=== PATIENT | female | born 1945 | race Caucasian/White ===

== ENCOUNTER 2020-11-27 14:18 | Outpatient (CLI) | payer MEDICARE, OTHER, SELFPAY ==
[2020-11-27 15:32] LABS: Basophils % 0.6 %; Eosinophils # 0.2 10^3/uL (0.0-0.8); Eosinophils % 2.9 %; Hematocrit 37.1 % (37.0-47.0); Hemoglobin 12.1 g/dL (11.5-15.3); Lymphocytes # 1.9 10^3/uL (0.8-4.8); Lymphocytes % 30.1 %; Mean Corpuscular HGB Conc 32.6 g/dL (30.0-36.0); Mean Corpuscular Hemoglobin 27.4 pg (28.0-34.0); Mean Corpuscular Volume 83.9 fL (81-99); Mean Platelet Volume 10.2 fL (7.4-10.4); Monocytes # 0.4 10^3/uL (0.2-0.9); Monocytes % 6.4 %; Neutrophils # 3.71 10^3/uL (1.8-7.7); Neutrophils % 59.7 %; Nucleated Red Blood Cells % 0 %; Platelet Count 171 10^3/cmm (130-400); Red Blood Count 4.42 10^6/uL (4.1-5.3); Red Cell Distribution Width 12.5 % (12.1-15.1); White Blood Count 6.2 10^3/uL (4.0-10.0)
[2020-11-27 15:49] LABS: Estmated Average Glucose 214; Hemoglobin A1C 9.1 % (4.0-6.0)
[2020-11-27 15:50] LABS: Alanine Aminotransferase 13 U/L (0-33); Alkaline Phosphatase 88 IU/L (35-105); Anion Gap 12.2 (5-19); Aspartate Amino Transferase 14 U/L (0-32); Blood Urea Nitrogen 24 mg/dL (8-23); Calcium 9.1 mg/dL (8.5-10.5); Carbon Dioxide 27 mmol/L (22-29); Chloride 102 mmol/L (98-107); Chol HDL Ratio 5.34 mg/dL (0.0-4.40); Cholesterol 171 mg/dL (0-200); Globulin 3.2 g/dL (1.3-4.6); Glucose 172 mg/dL (65-115); HDL Cholesterol 32 mg/dL (60-100); Magnesium 1.8 mg/dL (1.7-2.3); Osmolality Calculated 292 mOsm/kg (285-295); Potassium 4.2 mmol/L (3.5-5.1); Sodium 137 mmol/L (136-145); Total Bilirubin 0.3 mg/dL (0.15-1.2); Total Protein 7.2 g/dL (6.6-8.7); Triglycerides 510 mg/dL (0-150)
[2020-11-27 15:53] LABS: Bilirubin Urine Neg (Negative); Blood Urine Neg (Negative); Glucose Urine UA 2+ (Normal); Ketones Urine Negative (Negative); Leukocyte Esterase Urine Trace (Negative); Nitrate Urine Negative (Negative); Protein Urine Neg (Negative); Urine Appearance Clear (CLEAR); Urine Color Yellow (Yellow); Urobilinogen Urine Norm (Negative); pH Urine 5 (5-7)
[2020-11-27 16:06] LABS: LDL Cholesterol Direct 69 mg/dL (0-100)
[2020-11-27 16:13] LABS: Creatinine Urine, Random 90 mg/dL (28-217); Microalbumin Random Urine 10 ug/dL (0-20); Urine Random Sodium 61 mmol/L
[2020-11-27 16:15] LABS: Microalbum Creatinine Ratio Ur 111 mg/dL (0-20); Urine Protein Random 23 mg/dL
[2020-11-27 16:19] LABS: Calcium 9.5 mg/dL (8.5-10.5); Parathyroid Hormone 75.5 pg/mL (15-65)
[2020-11-27 16:20] LABS: Squamous Epithelial Cell Urine 15-25 /hpf (0-5); WBC Urine 40-55 /hpf (0-5)
[2020-11-27 16:21] LABS: Add Urine Culture? No; Bacteria Urine TRACE /hpf
== END 2020-11-27 14:19 | disposition home or self-care (01) ==
PROVIDERS: Absent Provider Nurse Practitioner; Family Provider Nurse Practitioner; Visit Provider Nurse Practitioner
DX: E11.9 Type 2 diabetes mellitus without complications (principal); I12.9 Hypertensive chronic kidney disease with stage 1 through stage 4 chronic kidney disease, or unspecified chronic kidney disease; N18.1 Chronic kidney disease, stage 1
CPT/HCPCS: 80053; 80061; 81001; 82044; 82310; 83036; 83721; 83735; 83970; 84100; 84156; 84300; 85025

== ENCOUNTER → 2024-05-28 07:56 | Outpatient (BNVA) | payer MEDICARE, OTHER, SELFPAY | PROVIDERS: Family Provider Nurse Practitioner; PCP Physician Assistant; Visit Provider Podiatrist Foot & Ankle Surgery | DX: E11.8 Type 2 diabetes mellitus with unspecified complications (principal); E11.42 Type 2 diabetes mellitus with diabetic polyneuropathy; L84 Corns and callosities; L60.3 Nail dystrophy; Z79.84 Long term (current) use of oral hypoglycemic drugs | CPT/HCPCS: 99203 ==

== ENCOUNTER → 2024-09-24 10:11 | Outpatient (BNVA) | payer MEDICARE, OTHER, SELFPAY | PROVIDERS: Family Provider Nurse Practitioner; PCP Physician Assistant; Visit Provider Podiatrist Foot & Ankle Surgery | DX: E11.42 Type 2 diabetes mellitus with diabetic polyneuropathy (principal); L84 Corns and callosities; L60.3 Nail dystrophy; Z79.84 Long term (current) use of oral hypoglycemic drugs | CPT/HCPCS: 99213 ==

== ENCOUNTER 2024-11-13 14:39 | Emergency (ER) | payer MEDICARE, OTHER, SELFPAY ==
--- NOTE | 2024-11-13 14:43 | ECG_ITS ---
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 Measurements Intervals [place] Rate: 72 P: 66 [place]: 145 QRS: 12 QRSD: 86 T: 52 QT: 376 QTc: 414 Interpretive Statements SINUS RHYTHM No previous ECG available for comparison Electronically Signed On 11-14-2024 21:57:19 SENIOR ANDROID SOFTWARE ENGINEER by Mike Camacho M.D. [email or web address] [email or web address] care [email or web address] [email or web address] [id number]
[2024-11-13 14:48] VITALS: BP 158/70; PULSE 76; RESP 17; TEMP 36.6; O2SAT 97; BMI 30.4
--- NOTE | 2024-11-13 15:17 | XR_ITS ---
WS: [id number] Portable AP upright chest, 11/13/2024 Clinical Data: Weakness Comparison: None. Findings: No nodules, masses or effusions are seen. The heart is normal. The pulmonary vascularity is not increased. No pneumonia or pneumothorax is seen. The diaphragms are flattened. The aortic arch and descending thoracic aorta show slight tortuosity. There are monitor leads on the chest wall. XR/XR chest 1V portable [id number] Impression: Hyperinflation and atherosclerosis.
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
--- NOTE | 2024-11-13 15:24 | CTR_ITS ---
PROCEDURE INFORMATION: Exam: CTA Head With Contrast, Arteriography Exam date and time: 11/13/2024 4:06 PM Age: 79 years old Clinical indication: Weakness; Additional info: Possible stroke TECHNIQUE: Imaging protocol: Computed tomographic angiography of the head with contrast. Exam focused on the arteries. 3D rendering (Not supervised by radiologist): MIP and/or 3D reconstructed images were created by the technologist. Radiation optimization: All CT scans at this facility use at least one of these dose optimization techniques: automated exposure control; mA and/or kV adjustment per patient size (includes targeted exams where dose is matched to clinical indication); or iterative reconstruction. Contrast material: OMNIPAQUE 350; Contrast volume: 100 ml; Contrast route: INTRAVENOUS (IV); COMPARISON: CT head thrombolytic [id number] 11/13/2024 3:18 PM RADIATION DOSE METRICS: Total DLP (mGy-cm): 408.3 FINDINGS: ANTERIOR CIRCULATION: Right internal carotid artery: Mild atherosclerotic calcification of the intracranial right ICA without significant stenosis. Right middle cerebral artery: No occlusion or significant stenosis. No aneurysm. Right anterior cerebral artery: No occlusion or significant stenosis. No aneurysm. Left internal carotid artery: Mild atherosclerotic calcification of the intracranial left ICA with small focal areas of mild luminal narrowing estimated at less than 40%. No significant stenosis. Left middle cerebral artery: No occlusion or significant stenosis. No aneurysm. Left anterior cerebral artery: No occlusion or significant stenosis. No aneurysm. POSTERIOR CIRCULATION: Right vertebral artery: No occlusion or significant stenosis. No aneurysm. Left vertebral artery: No occlusion or significant stenosis. No aneurysm. Basilar artery: No occlusion or significant stenosis. No aneurysm. Right posterior cerebral artery: No occlusion or significant stenosis. No aneurysm. Left posterior cerebral artery: No occlusion or significant stenosis. No aneurysm. Brain: No acute abnormality appreciated. Cerebral ventricles: No ventriculomegaly. Bones/joints: Unremarkable. No acute fracture. Soft tissues: Unremarkable. PROCEDURE INFORMATION: Exam: CTA Neck With Contrast Exam date and time: 11/13/2024 4:06 PM Age: 79 years old Clinical indication: Weakness; Additional info: Possible stroke TECHNIQUE: Imaging protocol: Computed tomographic angiography of the neck with contrast. Exam focused on the cervical segments of the vasculature. 3D rendering (Not supervised by radiologist): MIP and/or 3D reconstructed images were created by the technologist. Radiation optimization: All CT scans at this facility use at least one of these dose optimization techniques: automated exposure control; mA and/or kV adjustment per patient size (includes targeted exams where dose is matched to clinical indication); or iterative reconstruction. Contrast material: OMNIPAQUE 350; Contrast volume: 100 ml; Contrast route: INTRAVENOUS (IV); COMPARISON: CT head thrombolytic [id number] 11/13/2024 3:18 PM RADIATION DOSE METRICS: Total DLP (mGy-cm): 408.3 FINDINGS: Right common carotid artery: No stenosis. No dissection or occlusion. Right internal carotid artery: Very mild atherosclerotic calcification at the origin without significant stenosis. No dissection or occlusion. Right external carotid artery: No occlusion or stenosis of the origin. Left common carotid artery: No stenosis. No dissection or occlusion. Left internal carotid artery: Very mild atherosclerotic calcification at the origin without significant stenosis. No dissection or occlusion. Left external carotid artery: No occlusion or stenosis of the origin. Right vertebral artery: No stenosis. No dissection or occlusion. Left vertebral artery: No stenosis. No dissection or occlusion. Soft tissues: Unremarkable. No significant soft tissue swelling. Bones/joints: There are degenerative changes involving the cervical and visualized upper thoracic spine. There are prominent anterior spurs at C2-C3 which could be degenerative or related to prior trauma. No acute fracture. CT/CT angio headneck* [id number] IMPRESSION: Mild atherosclerotic calcification of the intracranial internal carotid arteries. No evidence for occlusion or significant stenosis. IMPRESSION: No significant stenosis or occlusion. REFERENCES: NASCET CRITERIA. The degree of stenosis in the cervical segment of the internal carotid artery is based on NASCET criteria. Normal is no stenosis. Mild is less than 50% stenosis. Moderate is 50-69% stenosis. Severe is 70% to 99% stenosis. Total occlusion is no detectable patent lumen.
--- NOTE | 2024-11-13 15:25 | W.ED.NEUROSD ---
HPI - Neuro Symptoms/Deficit General: Chief Complaint: Neuro Symptoms/Deficit Stated Complaint: stroke like symptoms Time Seen by Provider: 11/13/24 15:12 History of Present Illness: 79-year-old woman with a history of hypertension and diabetes who presents emergency room with left-sided paresthesia/tingling. He says this has happened several times in the past and she thought it might be from her back and so she is been to her chiropractor couple times and that has not seemed to help. She says right after she left the gym today it started. This is about an hour ago. She has some tingling on the left side of her lower face and in her left arm. She says it feels like when her arm goes to sleep. No actual sensory deficit. No motor deficits. No slurred speech or facial droop. Related Data Home Medications ?Medication ?Instructions ?Recorded ?Confirmed metformin 500 mg tablet 500 mg PO BID 05/28/24 11/13/24 metoprolol succinate 25 mg 25 mg PO DAILY 05/28/24 11/13/24 tablet,extended release 24 hr lisinopril 5 mg tablet 5 mg PO DAILY 09/24/24 11/13/24 Previous Rx's ?Medication ?Instructions ?Recorded aspirin 81 mg capsule 81 mg PO DAILY #30 caps 11/13/24 atorvastatin 20 mg tablet (Lipitor) 20 mg PO DAILY #30 tabs 11/13/24 Allergies Allergy/AdvReac Type Severity Reaction Status Date / Time ampicillin Allergy Unknown Verified 11/13/24 14:53 Review of Systems Narrative: Constitutional symptoms: Negative except as documented in HPI. Skin symptoms: Negative except as documented in HPI. Eye symptoms: Negative except as documented in HPI. ENMT symptoms: Negative except as documented in HPI. Respiratory symptoms: Negative except as documented in HPI. Cardiovascular symptoms: Negative except as documented in HPI. Gastrointestinal symptoms: Negative except as documented in HPI. Genitourinary symptoms: Negative except as documented in HPI. Musculoskeletal symptoms: Negative except as documented in HPI. Neurologic symptoms: Negative except as documented in HPI. Psychiatric symptoms: Negative except as documented in HPI. Endocrine symptoms: Negative except as documented in HPI. PFSH ED PFSH: Social History Smoking and tobacco/nicotine status: never used tobacco/nicotine Alcohol intake: never Substance/Drug Use: never Physical Exam Narrative: EXAM NARRATIVE: General: Alert, no acute distress. Skin: Warm, dry. Head: Normocephalic, atraumatic. Neck: Supple, trachea midline. Eye: Extraocular movements are intact. Ears, nose, mouth and throat: mucosa moist. Cardiovascular: Regular, Normal peripheral perfusion. Respiratory: Lungs are clear to auscultation, respirations are non-labored, breath sounds are equal, Symmetrical chest wall expansion. Gastrointestinal: Soft, Nontender, Non distended Musculoskeletal: Normal ROM, no deformity. Neurological: Alert and oriented, No focal neurological deficit observed. Psychiatric: Cooperative, appropriate mood & affect. Course Vital Signs: Vital signs: Vital Signs Temperature 98 F 11/13/24 14:48 Pulse Rate 67 11/13/24 17:21 Respiratory Rate 17 11/13/24 14:48 Blood Pressure 189/84 11/13/24 17:21 Pulse Oximetry 98 11/13/24 17:21 Oxygen Delivery Me thod Room Air 11/13/24 15:37 MDM - Neuro Symptoms/Deficit Medical Decision Making Medical decision making: Differential diagnosis for patient with focal neurologic deficit(s) includes but not limited to and based on the above HPI, review of systems and physical exam: ischemic stroke, hemorrhagic stroke and embolic stroke secondary to atrial fibrillation), TIA, Hamm's palsey, metabolic encephalopathy with previous stroke. NIH Stroke Scale/Score (NIHSS) from [employer] on 11/13/2024 All calculations should be rechecked by clinician prior to use RESULT SUMMARY: 0 points NIH Stroke Scale INPUTS: 1A: Level of consciousness ?> 0 = Alert; keenly responsive 1B: Ask month and age ?> 0 = Both questions right 1C: 'Blink eyes' & 'squeeze hands' ?> 0 = Performs both tasks 2: Horizontal extraocular movements ?> 0 = Normal 3: Visual melara ?> 0 = No visual loss 4: Facial palsy ?> 0 = Normal symmetry 5A: Left arm motor drift ?> 0 = No drift for 10 seconds 5B: Right arm motor drift ?> 0 = No drift for 10 seconds 6A: Left leg motor drift ?> 0 = No drift for 5 seconds 6B: Right leg motor drift ?> 0 = No drift for 5 seconds 7: Limb Ataxia ?> 0 = No ataxia 8: Sensation ?> 0 = Normal; no sensory loss 9: Language/aphasia ?> 0 = Normal; no aphasia 10: Dysarthria ?> 0 = Normal 11: Extinction/inattention ?> 0 = No abnormality Consultation: I spoke with Dr. Funes who is on-call for neurology. He agrees this likely is not a stroke but recommends placement on 81 mg aspirin and 20 mg of Lipitor. Follow-up in clinic. If all of the workup is negative. CT head: No acute intracranial process. no intracranial hemorrhage, no evidence of infarct. no evidence of acute fracture.This was reviewed and interpreted by myself the ER physician. EKG: Time 1443. Rate 72. Normal sinus rhythm, No ST-T changes, no ectopy, normal NH & QRS intervals, This was reviewed and interpreted by myself the ER physician at 1447 CTA of the head and neck: No obvious stenosis or occlusions are identified. Some mild atherosclerotic calcification of the intracranial internal carotid arteries but nothing significant. This was reviewed and interpreted by myself the emergency room physician. I also reviewed the radiology report. Orders placed to evaluate differential diagnosis based on the above differential, HPI and physical exam Lab Review: Laboratory results were reviewed and interpreted by myself the emergency room physician. Lab work is unremarkable. No leukocytosis. No anemia. No renal failure. I reviewed the patient's medical record. Reexamination: Patient remained stable. No increased work of breathing. No altered mental status. No focal motor deficits. Assessment and plan: Paresthesia Hypertension - Discharged home - Discussed plan with patient. Answered any questions. - Evaluation and treatment of this problem were appropriate in the emergency setting. Lab Data 11/13/24 16:38 11/13/24 16:38 Radiology Impressions Chest X-Ray 11/13/24 15:17 Impression: Hyperinflation and atherosclerosis. Head CT 11/13/24 15:17 IMPRESSION: 1. No acute intracranial hemorrhage or edema. 2. Minimal small vessel disease. Notified Christal Moran MD at 11/13/2024 3:26 PM. Head/Neck CTA 11/13/24 15:24 IMPRESSION: Mild atherosclerotic calcification of the intracranial internal carotid arteries. No evidence for occlusion or significant stenosis. IMPRESSION: No significant stenosis or occlusion. REFERENCES: NASCET CRITERIA. The degree of stenosis in the cervical segment of the internal carotid artery is based on NASCET criteria. Normal is no stenosis. Mild is less than 50% stenosis. Moderate is 50-69% stenosis. Severe is 70% to 99% stenosis. Total occlusion is no detectable patent lumen. Laboratory Results WBC 5.24 10^3/uL (3.29-11.43) 11/13/24 16:38 Corrected WBC Cancelled 11/13/24 15:40 RBC 4.09 10^6/uL (3.85-5.65) 11/13/24 16:38 Hgb 11.40 g/dL (11.27-16.99) 11/13/24 16:38 Hct 35.7 % (36-47) L 11/13/24 16:38 MCV 87.3 fl (85-98) 11/13/24 16:38 MCH 27.9 pg (27-33) 11/13/24 16:38 MCHC 31.9 g/dL (30-55) 11/13/24 16:38 RDW 12.5 % (12.1-15.1) 11/13/24 16:38 Plt Count 124 10^3/cmm (157-399) L 11/13/24 16:38 MPV 9.2 fL (7.4-10.4) 11/13/24 16:38 Gran % Cancelled 11/13/24 15:40 Neut % (Auto) 59.4 % 11/13/24 16:38 Lymph % (Auto) 28.1 % 11/13/24 16:38 [place] % (Auto) 7.3 % 11/13/24 16:38 Eos % (Auto) 4.4 % 11/13/24 16:38 Baso % (Auto) 0.4 % 11/13/24 16:38 Neut # (Auto) 3.12 10^3/uL (1.8-7.7) 11/13/24 16:38 Lymph # (Auto) 1.5 10^3/uL (0.8-4.8) 11/13/24 16:38 [place] # (Auto) 0.4 10^3/uL (0.2-0.9) 11/13/24 16:38 Eos # (Auto) 0.2 10^3/uL (0.0-0.8) 11/13/24 16:38 Baso # (Auto) 0.0 10^3/uL (0.0-0.1) 11/13/24 16:38 Absolute Gran (auto) Cancelled 11/13/24 15:40 Nucleated RBC % (auto) 0 % 11/13/24 16:38 Nucleated RBCs # 0.0 /100WBC 11/13/24 16:38 PT 13.90 SECONDS (12.1-14.9) 11/13/24 16:38 INR 1.00 (0.8-1.2) 11/13/24 16:38 APTT 31.8 SECONDS (23.9-36.7) 11/13/24 16:38 Sodium 135 mmol/L (136-145) L 11/13/24 16:38 Potassium 4.3 mmol/L (3.5-5.1) 11/13/24 16:38 Chloride 100 mmol/L (98-107) 11/13/24 16:38 Carbon Dioxide 26 mmol/L (22-29) 11/13/24 16:38 Anion Gap 13.3 (5-19) 11/13/24 16:38 BUN 22 mg/dL (8-23) 11/13/24 16:38 Creatinine 1.1 mg/dL (0.5-0.9) H 11/13/24 16:38 GFR Calculation Not Reportable 11/13/24 16:38 Glucose 123 mg/dL (65-115) H 11/13/24 16:38 Calculated Osmolality 285 mOsm/kg (285-295) 11/13/24 16:38 Calcium 9.2 mg/dL (8.5-10.5) 11/13/24 16:38 Total Bilirubin 0.3 mg/dL (0.15-1.2) 11/13/24 16:38 AST 18 U/L (0-32) 11/13/24 16:38 ALT 14 U/L (0-33) 11/13/24 16:38 Alkaline Phosphatase 66 U/L (35-105) 11/13/24 16:38 Total Protein 6.2 g/dL (6.6-8.7) L 11/13/24 16:38 Albumin 3.7 g/dL (3.5-5.2) 11/13/24 16:38 Globulin 2.5 g/dL (1.3-4.6) 11/13/24 16:38 Urine Color Yellow (Yellow) 11/13/24 15:55 Urine Appearance Clear (CLEAR) 11/13/24 15:55 Urine pH 5.0 (5-7) 11/13/24 15:55 Ur Specific Point Clear 1.019 (1.005-1.030) 11/13/24 15:55 Urine Protein 1+ (Negative) A 11/13/24 15:55 Urine Glucose (UA) 2+ (Normal) H 11/13/24 15:55 Urine Ketones Negative (Negative) 11/13/24 15:55 Urine Blood Negative (Negative) 11/13/24 15:55 Urine Nitrate Negative (Negative) 11/13/24 15:55 Urine Bilirubin Negative (Negative) 11/13/24 15:55 Urine Urobilinogen 0.2 mg/dL (Negative) 11/13/24 15:55 Ur Leukocyte Esterase Negative (Negative) 11/13/24 15:55 Urine RBC 0-2 /hpf (0-2) 11/13/24 15:55 Urine WBC 0-5 /hpf (0-5) 11/13/24 15:55 Ur Squamous Epith Cells 0-5 /hpf (0-5) 11/13/24 15:55 Amorphous Sediment Not Reportable 11/13/24 15:55 Urine Bacteria None seen /hpf (NONE) 11/13/24 15:55 Hyaline Casts 0.40 /lpf 11/13/24 15:55 All radiology interpretation(s) finalized by discharge Discharge Plan Discharge Patient Disposition: Home Clinical Impression: Paresthesia, Hypertension Condition: Stable Prescriptions: New aspirin 81 mg capsule 81 mg PO DAILY Qty: 30 2RF atorvastatin [Lipitor] 20 mg tablet 20 mg PO DAILY Qty: 30 2RF No Action metformin 500 mg tablet 500 mg PO BID metoprolol succinate 25 mg tablet extended release 24 hr 25 mg PO DAILY lisinopril 5 mg tablet 5 mg PO DAILY Discharge Orders: Discharge ED (Routine); Ordered 11/13/24 Ordered By: Christal Moran Referrals: Aldo Funes MD [Physician] - 4-7 days (Please call for an appointment with Dr. Funes who is a neurologist. Please take new medications as instructed.) Lu Akhtar PA [Primary Care Provider] - Discharge Diet: Usual diet Discharge Activity: Increase activity as tolerated Patient Instructions: Paresthesia (ED), Opioid Safety, Pain Management Activity Restrictions/Additional Instructions: Thank you for choosing [facility] for your healthcare needs today. Please realize this is an emergency room and that we are providing you with a medical screening exam and this may not be complete and all inclusive of all the testing and or work up that you may need to determine your ailment or severity of your illness. You have been screened and evaluated and felt safe for discharge. Health conditions do change or evolve sometimes and as such it is important that you follow up with your Primary Doctor to be re checked, 3-5 days is a general good time frame for follow up. You are always welcome to return to the ED for re assessment if your symptoms are worsening or you have new concerns Print Language: Sri Lankan Coding Level of Care Code ED Weight Loss Consultant for Erik Blanton
[2024-11-13 15:37] VITALS: BP 180/87; PULSE 70; O2SAT 92
[2024-11-13] MEDS: iohexol 350 mg/mL 500 mL Btl (per mL) IV (16:08)
[2024-11-13 16:51] LABS: Basophils % 0.4 %; Eosinophils # 0.2 10^3/uL (0.0-0.8); Eosinophils % 4.4 %; Hematocrit 35.7 % (36-47); Lymphocytes # 1.5 10^3/uL (0.8-4.8); Lymphocytes % 28.1 %; Mean Corpuscular HGB Conc 31.9 g/dL (30-55); Mean Corpuscular Hemoglobin 27.9 pg (27-33); Mean Corpuscular Volume 87.3 fl (85-98); Mean Platelet Volume 9.2 fL (7.4-10.4); Monocytes # 0.4 10^3/uL (0.2-0.9); Monocytes % 7.3 %; Neutrophils # 3.12 10^3/uL (1.8-7.7); Neutrophils % 59.4 %; Nucleated Red Blood Cells % 0 %; Platelet Count 124 10^3/cmm (157-399); Red Blood Count 4.09 10^6/uL (3.85-5.65); Red Cell Distribution Width 12.5 % (12.1-15.1); White Blood Count 5.24 10^3/uL (3.29-11.43)
[2024-11-13 16:52] LABS: Bilirubin Urine Negative (Negative); Blood Urine Negative (Negative); Glucose Urine UA 2+ (Normal); Ketones Urine Negative (Negative); Leukocyte Esterase Urine Negative (Negative); Nitrate Urine Negative (Negative); Protein Urine 1+ (Negative); Specific Gravity, Urine 1.019 (1.005-1.030); Urine Appearance Clear (CLEAR); Urine Color Yellow (Yellow); Urobilinogen Urine 0.2 mg/dL (Negative)
[2024-11-13 16:58] LABS: Bacteria Urine None Seen /hpf; RBC Urine 0-2 /hpf (0-2); Squamous Epithelial Cell Urine 0-5 /hpf (0-5); WBC Urine 0-5 /hpf (0-5)
[2024-11-13 17:03] LABS: Alanine Aminotransferase 14 U/L (0-33); Albumin Level 3.7 g/dL (3.5-5.2); Alkaline Phosphatase 66 U/L (35-105); Anion Gap 13.3 (5-19); Aspartate Amino Transferase 18 U/L (0-32); Blood Urea Nitrogen 22 mg/dL (8-23); Calcium 9.2 mg/dL (8.5-10.5); Carbon Dioxide 26 mmol/L (22-29); Chloride 100 mmol/L (98-107); Creatinine Clr Calc Pharmacy 52.1274; Globulin 2.5 g/dL (1.3-4.6); Glucose 123 mg/dL (65-115); Osmolality Calculated 285 mOsm/kg (285-295); Potassium 4.3 mmol/L (3.5-5.1); Sodium 135 mmol/L (136-145); Total Bilirubin 0.3 mg/dL (0.15-1.2); Total Protein 6.2 g/dL (6.6-8.7)
[2024-11-13 17:04] LABS: Partial Thromboplastin Time 31.8 SECONDS (23.9-36.7)
--- NOTE | 2024-11-13 17:09 | P.CONIM_ITS ---
Providers/Reason For Consult 2 Consulting Physician/Specialty*: Aldo Funes MD neurology and epilepsy Reason for Consult*: Acute care/code stroke emergency department room #11 Primary Care Provider: Lu Akhtar History of Present Illness History of Present Illness Francine Akhtar is a 79 year old female with a history of type 2 diabetes mellitus and diabetic peripheral neuropathy. According to the patient, 3 weeks prior to admission she began experiencing recurrent episodes of left-sided numbness involving the left lower face and a V3 distribution associated with tongue and left side of her mouth numbness associated with left hand numbness and left leg numbness lasting anywhere from 30 to 40 minutes and resolving. The patient denied weakness or visual difficulty or speech difficulty with the symptoms. The patient stated the symptoms feel as though her body has gone to sleep similar to arm numbness when a person falls asleep on their arm and wakes up and the arm is numb and tingling. The patient denied chest pain. But in the emergency department her blood pressure was elevated 200/85 with heart rate of 71. O2 saturation 95% on room air. Currently the patient is asymptomatic. NIH score = [address] 11/13/2024 revealed no acute finding CT angiogram of the head and neck 11/13/2024 revealed no acute findings and no large vessel occlusion. Serum glucose 123 Drug allergies: Ampicillin type reaction unknown Current medications: Aspirin 81 mg p.o. daily Lipitor 20 mg p.o. daily Lisinopril 5 mg p.o. daily Metformin 500 mg p.o. twice daily Metoprolol ER 25 mg p.o. daily Past medical history: Type 2 diabetes mellitus Diabetic polyneuropathies Hypertension Habits: None Social history: The patient states that she lives with her mother and takes care of her mother Review of Systems 2 General: Reports: 10 or more systems reviewed and unremarkable except in HPI and below Neuro: Reports: numbness in extremities and sensory changes Medications/Allergies Home Medications ?Medication ?Instructions ?Recorded ?Confirmed ?Last Taken ?Type metformin 500 mg tablet 500 mg PO BID 05/28/2411/1311/13/24 History metoprolol succinate 25 mg 25 mg PO DAILY 05/28/2403/0211/13/24 History tablet,extended release 24 hr lisinopril 5 mg tablet 5 mg PO DAILY 09/24/2411/1311/13/24 History aspirin 81 mg capsule 81 mg PO DAILY #30 caps 02/0 03/02 Unknown Rx atorvastatin 20 mg tablet (Lipitor) 20 mg PO DAILY #30 tabs 11/13/24 Unknown Rx Allergies Allergy/AdvReac Type Severity Reaction Status Date / Time ampicillin Allergy Unknown Verified 11/13/24 14:53 PFSH Acute 2 PFSH: Social History Smoking and tobacco/nicotine status: never used tobacco/nicotine Alcohol intake: never Substance/Drug Use: never Vitals/I&O/Wt Last Vital Signs Temp 98 F 11/13/24 14:48 Pulse 70 11/13/24 15:37 Resp 17 11/13/24 14:48 BP 180/87 11/13/24 15:37 Pulse Ox 92 11/13/24 15:37 O2 Del Method Room Air 11/13/24 15:37 Weight last 48 hrs Weight 206 lb Physical Exam 2 Const: OTHER: NIH score = [address] 11/13/2024 revealed no acute finding CT angiogram of the head and neck 11/13/2024 revealed no acute findings and no large vessel occlusion. Serum glucose 123 Blood pressure 200/85 heart rate 71 O2 saturation 95% on room air The patient is alert and oriented x 3. Speech fluent. Head normocephalic. Neck supple. Cranial nerves II through XII intact. Pupils 4 mm round reactive to light and accommodation. Extraocular movements intact. Motor testing 5/5 bilaterally. There was no drift. Deep tendon reflexes revealed plantar responses bilaterally. Sensory examination intact to touch. There was no extinction on double sensory stimulation. [id number] revealed no ataxia. Throat clear. Lungs clear. Heart regular rhythm and rate. Extremities were negative for cyanosis Data 11/13/24 16:38 11/13/24 16:38 A&P Assessment and plan (1) TIA involving right internal carotid artery: Impression: 1. Francine Akhtar is a 79 year old female with a history of type 2 diabetes mellitus and diabetic peripheral neuropathy. According to the patient, 3 weeks prior to admission she began experiencing recurrent episodes of left-sided numbness involving the left lower face and a V3 distribution associated with tongue and left side of her mouth numbness associated with left hand numbness and left leg numbness lasting anywhere from 30 to 40 minutes and resolving. The patient denied weakness or visual difficulty or speech difficulty with the symptoms. The patient stated the symptoms feel as though her body has gone to sleep similar to arm numbness when a person falls asleep on their arm and wakes up and the arm is numb and tingling. The patient denied chest pain. But in the emergency department her blood pressure was elevated 200/85 with heart rate of 71. O2 saturation 95% on room air. Currently the patient is asymptomatic. NIH score = 0. Therefore the patient was not a candidate for intravenous thrombolytics and no intravenous thrombolytics were administered 2. Hypertension most likely causing or contributing to the patient's symptoms of right cerebral TIAs manifested as episodic left-sided numbness and tingling 3. Type 2 diabetes mellitus Plan: 1. Address hypertension 2. Increase aspirin to 3 on 25 mg p.o. every morning with food 3. Increase Lipitor to 40 mg p.o. nightly 4. Schedule patient for follow-up in the [facility] neurology clinic 5. Recommend cardiac evaluation to rule out cardiac causes for TIA symptoms 6. Stroke education for patient and give patient stroke pamphlet and instruct patient to return to the [facility] emergency department other to the nearest emergency room if she experience any further symptoms suggestive of TIAs or strokes PDMP PDMP Reviewed: Not Reviewed Consult Attestations 2 Medical Necessity Statement: The patient was evaluated by neurology for acute care/code stroke emergency department room #11 Coding Level of Care Code 33033 Diagnoses TIA involving right internal carotid artery G45.1
[2024-11-13 17:21] VITALS: BP 189/84; PULSE 67; O2SAT 98
[2024-11-13 17:56] VITALS: BP 180/81; PULSE 73; O2SAT 97
== END 2024-11-13 18:02 | disposition home or self-care (01) ==
PROVIDERS: Emergency Provider Emergency Medicine; PCP Physician Assistant
DX: R20.2 Paresthesia of skin (principal); I10 Essential (primary) hypertension; Z79.84 Long term (current) use of oral hypoglycemic drugs
CPT/HCPCS: 36415; 70450; 70496; 70498; 71045; 80053; 81001; 85025; 85610; 85730; 93005; 99285

== ENCOUNTER 2024-12-31 12:07 | Outpatient (CLI) | payer MEDICARE, SELFPAY ==
--- NOTE | 2024-12-31 12:16 | MR_ITS ---
WS: [id number] MRI BRAIN WITH AND WITHOUT CONTRAST HISTORY: FACE NUMBNESS COMPARISON: CT head 11/13/2024 TECHNIQUE: Multiplanar imaging performed through the brain with MultiHance 20 ml's IV. No acute infarcts are seen. Cross-white matter differentiation is well preserved. Mild scattered small vessel ischemic disease in the subcortical and periventricular white matter. No large infarct. Mild hippocampal atrophy. No susceptibility artifacts or prior lacunar infarcts. Ventricles and extra-axial spaces are normal. Clivus and pituitary gland are normal. Visualized posterior fossa and brainstem are also normal. Postcontrast images are negative for masses or vascular malformations. Dural venous sinuses are normal. Paranasal sinuses: Well aerated with no significant disease. Mastoid air cells: Normal. Calvarium and scalp: Normal. MR/MR head wo/w con [id number] IMPRESSION: 1. No acute infarct or hemorrhage. 2. Mild small vessel ischemic type changes throughout the supratentorial white matter. No prior infarct. 3. Mild hippocampal atrophy. 4. No enhancing masses or vascular malformation.
--- NOTE | 2024-12-31 12:16 | MR_ITS ---
WS: [id number] MRI CERVICAL SPINE NONCONTRAST HISTORY: UPPER LIMB PARESTHESIA COMPARISON: None available. Technique: Multiplanar, multisequence noncontrast imaging of the cervical spine. Mild increase in cervical lordosis. Mild disc base narrowing and desiccation. Signal within the cervical cord is normal. Visualized posterior fossa is unremarkable. Craniocervical junction, C1 and C2 relationship, odontoid process and soft tissues are normal. C2-C3: Normal. C3-C4: Small central disc protrusion and bilateral facet arthritis. Mild RIGHT and moderate LEFT foraminal stenosis. C4-C5: Mild disc bulging with a central disc protrusion. Bilateral facet joint arthritis. C5-C6: Broad-based central disc protrusion with bilateral facet arthritis. Mild central stenosis. C6-C7: Mild annular disc bulging with bilateral facet arthritis. Mild central and foraminal stenosis. C7-T1: No stenosis. Paraspinal soft tissue are normal. MR/MR cervical spin wo con* [id number] IMPRESSION: 1. Quality this examination is compromised by body habitus. 2. C5-6: Broad-based central disc protrusion resulting in mild central stenosi s. 3. Moderate LEFT and mild RIGHT foraminal stenosis at C3-4. 4. Mild central and bilateral foraminal stenosis at C6-7. 5. Moderate bilateral facet joint arthropathy throughout the cervical spine. M ost significant from C4-5 through C6-7.
[2024-12-31] MEDS: gadobenate dimeglumine 20 mL vial IV (13:40)
== END 2024-12-31 12:08 | disposition home or self-care (01) ==
PROVIDERS: PCP Physician Assistant; Visit Provider Family Medicine
DX: R20.2 Paresthesia of skin (principal); R93.0 Abnormal findings on diagnostic imaging of skull and head, not elsewhere classified; G31.89 Other specified degenerative diseases of nervous system; I67.82 Cerebral ischemia; M50.222 Other cervical disc displacement at C5-C6 level; M48.02 Spinal stenosis, cervical region; M47.892 Other spondylosis, cervical region; M50.21 Other cervical disc displacement, high cervical region; M50.321 Other cervical disc degeneration at C4-C5 level; M50.221 Other cervical disc displacement at C4-C5 level
CPT/HCPCS: 70553; 72141

== ENCOUNTER → 2025-08-05 10:28 | Outpatient (BNVA) | payer MEDICARE, SELFPAY | PROVIDERS: PCP Physician Assistant; Visit Provider Podiatrist Foot & Ankle Surgery | DX: E11.8 Type 2 diabetes mellitus with unspecified complications (principal); E11.42 Type 2 diabetes mellitus with diabetic polyneuropathy; L84 Corns and callosities; L60.3 Nail dystrophy; L98.8 Other specified disorders of the skin and subcutaneous tissue | CPT/HCPCS: 99213 ==

== ENCOUNTER 2025-08-27 14:24 | Outpatient (CLI) | payer MEDICARE, SELFPAY ==
--- NOTE | 2025-08-27 14:36 | XR_ITS ---
WS: [id number] DEXA (DUAL ENERGY X-RAY ABSORPTIOMETRY) Bone mineral density was performed using a NeurogesX machine. HISTORY: POST MENOPAUSAL COMPARISON: 12/28/2015 Lumbar spine BMD (L1-L4): 1.360 g/cm2 T score: 1.5 Z score: 2.4 Total hip BMD: Left: 0.947 g/cm2. T score: -0.5 Z score: 0.8 Right: 0.963 g/cm2. T score: -0.4 Z score: 0.9 10 year probability of a major osteoporotic fracture is 12.9%. Compared to the prior study from 12/28/2015. Lumbar spine bone mineral density has increased by 9.7%. Bilateral hips bone mineral density has decreased by 12.5%. XR/XR DEXA axial skeleton* [id number] IMPRESSION: NORMAL BONE MINERAL DENSITY based upon the WHO classification for females. Significant increase in bone mineral density in the lumbar spine since the prio r study. Significant decrease in bone mineral density in the hips since the prior study.
== END 2025-08-27 14:25 | disposition home or self-care (01) ==
LOC: RAD 14:25
PROVIDERS: PCP Physician Assistant; Visit Provider Physician Assistant
DX: Z13.820 Encounter for screening for osteoporosis (principal); Z78.0 Asymptomatic menopausal state
CPT/HCPCS: 77080